=== PATIENT | female | born 2000 | race Caucasian/White ===

== ENCOUNTER 2019-08-09 16:45 | Emergency (ER) | payer BC ==
[2019-08-09] MEDS ORDERED: Ondansetron 4 MG Tab.DIS PO ONE (16:46)
[2019-08-09] MEDS ORDERED: Sulfamethoxazole/Trimethoprim 800-160 MG Tab PO ONE (16:46)
[2019-08-09] MEDS ORDERED: Sodium Chloride 0.9% 1,000 ML IV ONE (16:59)
[2019-08-09] MEDS ORDERED: Sodium Chloride 0.9% 10 ML Syringe FLUSH PRN (16:59)
[2019-08-09] MEDS ORDERED: Pantoprazole 40 MG Vial IVPUSH ONE (17:00)
[2019-08-09] MEDS ORDERED: Ondansetron 4 MG/2 ML SDV IVPUSH ONE (17:00)
--- NOTE | 2019-08-09 17:06 | EDM.PDOC ---
ED HPI GENERAL MEDICAL PROBLEM - General Chief Complaint: Gastrointestinal Problem Stated Complaint: ILL,PUCKING Time Seen by Provider: 08/09/19 17:02 Source of Information: Reports: Patient History Limitations: Reports: No Limitations - History of Present Illness INITIAL COMMENTS - FREE TEXT/NARRATIVE: Presents with N/V after eating a blueberry scone last night. Able to keep fluids down, but not solids. Denies abdominal pain or diarrhea. No prior h/o chronic abdominal issues or surgeries. Complains of lightheadedness. Duration: Hour(s): (24) Location: Reports: Abdomen upper abd Pain Score (Numeric/FACES): 4 - Related Data Allergies Allergy/AdvReac Type Severity Reaction Status Date / Time No Known Allergies Allergy Verified 08/09/19 16:55 Home Meds: Home Meds Sulfamethoxazole/Trimethoprim [Bactrim Ds Tablet] 1 each PO BID #4 tablet [Rx] Past Medical History - Past Health History Medical/Surgical History: Denies Medical/Surgical History Social & Family History - Tobacco Use Smoking Status *Q: Never Smoker - Alcohol Use Alcohol Use History: No ED ROS GENERAL - Review of Systems Review Of Systems: Comprehensive ROS is negative, except as noted in HPI. ED EXAM, GI/ABD - Physical Exam Exam: See Below Exam Limited By: No Limitations General Appearance: Alert, WD/WN, No Apparent Distress Throat/Mouth: No Airway Compromise Head: Atraumatic, Normocephalic Respiratory/Chest: No Respiratory Distress, Lungs Clear, Normal Breath Sounds Cardiovascular: Regular Rate, Rhythm, No Murmur GI/Abdominal Exam: Normal Bowel Sounds, Soft, Non-Tender Back Exam: Full Range of Motion. No: CVA Tenderness (R), CVA Tenderness (L) Extremities: Normal Range of Motion Neurological: Alert, Normal Cognition Psychiatric: Normal Affect, Normal Mood Skin Exam: Warm, Dry, Intact Course - Vital Signs Last Recorded V/S: Last Vital Signs Temp 36.8 C 08/09/19 16:45 Pulse 101 H 08/09/19 16:45 Resp 17 08/09/19 16:45 BP 119/63 08/09/19 16:45 Pulse Ox 100 08/09/19 16:45 - Orders/Labs/Meds Orders: Active Orders 24 hr Category Date Time Status CULTURE URINE [RM] Stat Lab 01/17/20 17:07 Received Sodium Chloride 0.9% [Saline Flush] Med 08/09/19 16:59 Active 10 ml FLUSH ASDIRECTED PRN Saline Lock Insert [OM.PC] Routine Oth 08/09/19 16:59 Ordered Medication Orders Sodium Chloride (Saline Flush) 10 ml FLUSH ASDIRECTED PRN PRN Reason: Keep Vein Open Last Admin: 08/09/19 18:12 Dose: 10 ml Labs: Laboratory Tests 08/09/19 08/09/19 08/09/19 Range/Units 17:07 17:07 17:20 WBC 13.7 H (4.5-12.0) X10-3/uL RBC 4.31 (3.23-5.20) x10(6)uL Hgb 13.4 (11.5-15.5) g/dL Hct 38.8 (30.0-51.3) % MCV 89.9 (80-96) fL MCH 31.0 (27.7-33.6) pg MCHC 34.5 (32.2-35.4) g/dL RDW 12.0 (11.5-15.5) % Plt Count 314 (125-369) X10(3)uL MPV 7.7 (7.4-10.4) fL Add Manual Diff Yes Neutrophils % (Manual) 94 H (46-82) % Band Neutrophils % 1 (0-6) % Lymphocytes % (Manual) 2 L (13-37) % Monocytes % (Manual) 1 L (4-12) % Eosinophils % (Manual) 1 (0-5) % Basophils % (Manual) 1 (0-2) % Sodium (135-145) mmol/L Potassium (3.5-5.3) mmol/L Chloride (100-110) mmol/L Carbon Dioxide (21-32) mmol/L BUN (7-18) mg/dL Creatinine (0.55-1.02) mg/dL Est Cr Clr Drug Dosing mL/min Estimated GFR (MDRD) (>60) BUN/Creatinine Ratio (9-20) Glucose (80-116) mg/dL Calcium (8.6-10.2) mg/dL Total Bilirubin (0.1-1.3) mg/dL AST (5-25) IU/L ALT (12-36) U/L Alkaline Phosphatase (56-112) IU/L Total Protein (6.0-8.0) g/dL Albumin (3.5-5.2) g/dL Globulin g/dL Albumin/Globulin Ratio Urine Color Yellow (YELLOW) Urine Appearance Cloudy (CLEAR) Urine pH 5.0 (5.0-6.5) Ur Specific [place] 1.015 (1.010-1.025) Urine Protein Trace (NEGATIVE) mg/dL Urine Glucose (UA) Normal (NORMAL) mg/dL Urine Ketones 50 H (NEGATIVE) mg/dL Urine Occult Blood Negative (NEGATIVE) Urine Nitrite Negative (NEGATIVE) Urine Bilirubin Small H (NEGATIVE) Urine Urobilinogen Normal (NEGATIVE) mg/dL Ur Leukocyte Esterase Moderate H (NEGATIVE) Urine RBC 0-5 (0-5) Urine WBC 5-10 H (0-5) Ur Squamous Epith Cells Moderate H (NS,R,O) Urine Bacteria Moderate H (NS) Urine Mucus Moderate H (NS) Urine HCG, Qual Negative (NEGATIVE) 08/09/19 Range/Units 17:20 WBC (4.5-12.0) X10-3/uL RBC (3.23-5.20) x10(6)uL Hgb (11.5-15.5) g/dL Hct (30.0-51.3) % MCV (80-96) fL MCH (27.7-33.6) pg MCHC (32.2-35.4) g/dL RDW (11.5-15.5) % Plt Count (125-369) X10(3)uL MPV (7.4-10.4) fL Add Manual Diff Neutrophils % (Manual) (46-82) % Band Neutrophils % (0-6) % Lymphocytes % (Manual) (13-37) % Monocytes % (Manual) (4-12) % Eosinophils % (Manual) (0-5) % Basophils % (Manual) (0-2) % Sodium 142 (135-145) mmol/L Potassium 3.5 (3.5-5.3) mmol/L Chloride 105 (100-110) mmol/L Carbon Dioxide 22 (21-32) mmol/L BUN 19 H (7-18) mg/dL Creatinine 0.6 (0.55-1.02) mg/dL Est Cr Clr Drug Dosing 138.85 mL/min Estimated GFR (MDRD) > 60 (>60) BUN/Creatinine Ratio 31.7 H (9-20) Glucose 99 (80-116) mg/dL Calcium 8.7 (8.6-10.2) mg/dL Total Bilirubin 0.8 (0.1-1.3) mg/dL AST 16 (5-25) IU/L ALT 17 (12-36) U/L Alkaline Phosphatase 85 (56-112) IU/L Total Protein 7.7 (6.0-8.0) g/dL Albumin 4.0 (3.5-5.2) g/dL Globulin 3.7 g/dL Albumin/Globulin Ratio 1.1 Urine Color (YELLOW) Urine Appearance (CLEAR) Urine pH (5.0-6.5) Ur Specific [place] (1.010-1.025) Urine Protein (NEGATIVE) mg/dL Urine Glucose (UA) (NORMAL) mg/dL Urine Ketones (NEGATIVE) mg/dL Urine Occult Blood (NEGATIVE) Urine Nitrite (NEGATIVE) Urine Bilirubin (NEGATIVE) Urine Urobilinogen (NEGATIVE) mg/dL Ur Leukocyte Esterase (NEGATIVE) Urine RBC (0-5) Urine WBC (0-5) Ur Squamous Epith Cells (NS,R,O) Urine Bacteria (NS) Urine Mucus (NS) Urine HCG, Qual (NEGATIVE) Meds: Medications Generic Name Dose Route Start Last Admin Trade Name Manny PRN Reason Stop Dose Admin Sodium Chloride 10 ml 08/09/19 16:59 08/09/19 18:12 Saline Flush FLUSH 10 ml ASDIRECTED PRN Administration Keep Vein Open Discontinued Medications Generic Name Dose Route Start Last Admin Trade Name Manny PRN Reason Stop Dose Admin Sodium Chloride 1,000 mls @ 999 mls/hr 08/09/19 16:59 08/09/19 17:35 Normal Saline IV 08/09/19 17:59 999 mls/hr .BOLUS ONE Administration Ondansetron HCl 4 mg 08/09/19 17:00 08/09/19 17:35 Zofran IVPUSH 08/09/19 17:01 4 mg ONETIME ONE Administration Pantoprazole Sodium 40 mg 08/09/19 17:00 08/09/19 17:35 Protonix Iv IVPUSH 08/09/19 17:01 40 mg ONETIME ONE Administration - Re-Assessments/Exams Free Text/Narrative Re-Assessment/Exam: 08/09/19 18:24 Symptoms improved after meds. 08/09/19 18:26 Sent home with Zofran and Bactrim DS starter packs Departure - Departure Time of Disposition: 18:24 Disposition: Home, Self-Care 01 Condition: Good Clinical Impression: UTI (urinary tract infection) Qualifiers: Urinary tract infection type: acute cystitis Hematuria presence: without hematuria Qualified Code(s): N30.00 - Acute cystitis without hematuria Vomiting Qualifiers: Vomiting type: unspecified Vomiting Intractability: non-intractable Nausea presence: with nausea Qualified Code(s): R11.2 - Nausea with vomiting, unspecified - Discharge Information *PRESCRIPTION DRUG MONITORING PROGRAM REVIEWED*: No *COPY OF PRESCRIPTION DRUG MONITORING REPORT IN PATIENT MARKE[facility]: Not Applicable Prescriptions: Sulfamethoxazole/Trimethoprim [Bactrim Ds Tablet] 1 each PO BID #4 tablet Instructions: Nausea and Vomiting, Adult, Urinary Tract Infection, Adult, Easy- to-Read Referrals: PCP,None [Primary Care Provider] - Forms: ED Department Discharge Additional Instructions: Take Bactrim and Zofran as directed. Drink plenty of clear fluids, advance to a BRAT diet (bananas, rice, applesauce, toast) as tolerated. Follow up in 2-3 days if symptoms don't improve. Return to the ER if symptoms worsen. Sepsis Event Note - Evaluation Sepsis Screening Result: No Definite Risk - Focused Exam Vital Signs: Vital Signs Temp Pulse Resp BP Pulse Ox 08/09/19 16:45 36.8 C 101 H 17 119/63 100 Date Exam was Performed: 08/09/19 Time Exam was Performed: 18:24 - My Orders Last 24 Hours: My Active Orders 08/09/19 16:59 Sodium Chloride 0.9% [Saline Flush] 10 ml FLUSH ASDIRECTED PRN Saline Lock Insert [OM.PC] Routine 08/09/19 17:07 CULTURE URINE [RM] Stat - Assessment/Plan Last 24 Hours: My Active Orders 08/09/19 16:59 Sodium Chloride 0.9% [Saline Flush] 10 ml FLUSH ASDIRECTED PRN Saline Lock Insert [OM.PC] Routine 08/09/19 17:07 CULTURE URINE [RM] Stat
== END 2019-08-09 18:45 | disposition home or self-care (01) ==
LOC: FB.ED 16:45
DX: N30.00 Acute cystitis without hematuria (principal); R11.2 Nausea with vomiting, unspecified
CPT/HCPCS: 36415; 80053; 81001; 81025; 85025; 87086; 96361; 96374; 96375; 99284; C9113; J2405; J7030; A9270-GY